=== PATIENT | female | born 1985 | race African-American/Black ===

== ENCOUNTER 2017-02-22 20:37 | Emergency (ER) | payer BC ==
[2017-02-22 21:44] LABS: HCG URINE NEGATIVE (NEGATIVE)
== END 2017-02-22 22:10 | disposition home or self-care (01) ==
LOC: D.ER 20:37
PROVIDERS: Family Medicine
DX: R07.89 Other chest pain (principal); M94.0 Chondrocostal junction syndrome [Tietze]

== ENCOUNTER 2017-10-17 20:14 | Emergency (ER) | payer BC ==
[2017-10-17 20:55] LABS: BASOPHILS 0.4 % (0-2); EOSINOPHILS 2.6 % (0-7); HEMATOCRIT 33.8 % (36.0-48.0); HEMOGLOBIN 10.7 g/dL (12-16); IMMATURE GRANULOCYTES 0.2 % (0-5); MCH 25.5 pg (26.0-34.0); MCHC 31.7 g/dL (31.0-37.0); MCV 80.7 fL (80.0-100.0); MEAN PLATELET VOLUME 9.6 fL (7.4-10.4); MONOCYTES 6.2 % (2-11); NEUTROPHILS 46.6 % (40-80); PLATELET COUNT 272 10x3/uL (130-400); RBC 4.19 10x6/uL (4.00-5.40); RDW 15.1 % (11.5-14.5); WBC 8.2 10x3/uL (4.8-10.8)
[2017-10-17 21:13] LABS: ALKALINE PHOSPHATASE 30 U/L (46-116); ALT (SGPT) 16 U/L (10-68); CALC OSMOLALITY 282 mosm/kg (275-300); CARBON DIOXIDE 25.9 mmol/L (21.0-32.0); CHLORIDE - SERUM 108 mmol/L (98-107); CREATININE - SERUM 0.7 mg/dL (0.6-1.3); GLUCOSE 114 mg/dL (74-106); POTASSIUM - SERUM 3.6 mmol/L (3.5-5.1); PROTEIN - SERUM 6.9 g/dL (6.4-8.2); SODIUM 142 mmol/L (136-145); UREA NITROGEN 10 mg/dL (7-18); eGFR NON AFRICAN AMERICAN > 90 mL/min (90-120)
[2017-10-17 21:19] LABS: APPEARANCE HAZY (CLEAR); BILIRUBIN NEGATIVE (NEGATIVE); COLOR DK YELLOW (YELLOW); GLUCOSE NEGATIVE (NEGATIVE); KETONE NEGATIVE (NEGATIVE); NITRITE NEGATIVE (NEGATIVE); PROTEIN NEGATIVE (NEGATIVE); UROBILINOGEN NORMAL (NORMAL)
[2017-10-17 21:21] LABS: RED CELLS - URINE >50 /hpf (0-5); WHITE CELLS - URINE 0-5 /hpf (0-5)
[2017-10-17 21:22] LABS: EPITHELIAL CELLS 0-5 /hpf (0-5)
[2017-10-17 21:23] LABS: BACTERIA FEW /hpf (NONE SEEN); SPERMATOZOA 0-5 /hpf (NONE SEEN)
== END 2017-10-17 21:43 | disposition home or self-care (01) ==
LOC: D.ER 20:14
PROVIDERS: Family Medicine
DX: R60.9 Edema, unspecified (principal); I10 Essential (primary) hypertension

== ENCOUNTER 2019-02-07 23:35 | Emergency (ER) | payer MEDICAID ==
[~2019-02-07] VITALS: Ht 160 cm; Wt 116.8 kg
[2019-02-07 23:54] VITALS: Ht 160 cm; Wt 116.8 kg
[2019-02-08] MEDS ORDERED: VISTARIL50 MG PO (02:02)
[2019-02-08] MEDS ORDERED: CLEOCIN HCL300 MG PO (02:02)
[2019-02-08 02:17] VITALS: BP 128/79
== END 2019-02-08 02:17 | disposition home or self-care (01) ==
LOC: D.ER 23:35
DX: L03.116 Cellulitis of left lower limb (principal); S70.362A Insect bite (nonvenomous), left thigh, initial encounter

== ENCOUNTER 2019-02-18 11:06 | Emergency (ER) | payer MEDICAID ==
[~2019-02-18] VITALS: Ht 160 cm; Wt 116.8 kg
[~2019-02-18 11:06] MED LIST: CLEOCIN HCL300 MG PO; VISTARIL50 MG PO
[2019-02-18 11:24] VITALS: Ht 160 cm; Wt 116.8 kg
[2019-02-18] MEDS ORDERED: HYDROCORTISO28.35 G1 TOPICAL (11:59)
[2019-02-18 12:23] VITALS: BP 148/89
== END 2019-02-18 12:23 | disposition home or self-care (01) ==
LOC: D.ER 11:06
DX: L25.9 Unspecified contact dermatitis, unspecified cause (principal)

== ENCOUNTER 2019-04-30 21:21 | Emergency (ER) | payer MEDICAID ==
[~2019-04-30] VITALS: Ht 160 cm; Wt 113.4 kg
[~2019-04-30 21:21] MED LIST changes: +HYDROCORTISO28.35 G1 TOPICAL
[2019-04-30 21:32] VITALS: Ht 160 cm; Wt 113.4 kg
[2019-04-30] MEDS ORDERED: FEXOFENADINE HC60 MG PO (22:36)
[2019-04-30] MEDS ORDERED: KEFLEX500 MG PO (22:36)
[2019-04-30 23:17] VITALS: BP 163/89
== END 2019-04-30 23:17 | disposition home or self-care (01) ==
LOC: D.ER 21:21
DX: J06.9 Acute upper respiratory infection, unspecified (principal); J45.909 Unspecified asthma, uncomplicated